=== PATIENT | male | born 1945 | race Caucasian/White ===

== ENCOUNTER 2017-05-11 12:07 | Observation (INO) | payer MEDICARE ==
[2017-05-11 12:31] LABS: BASOPHIL % 0.3 % (0.0-0.4); Eosinophil % 3.9 % (0.00-5.0); Granulocytes % 74.1 % (36.0-66.0); Lymphocytes % 15.2 % (24.0-44.0); Mean Cell Volume 88.9 fl (78-100); Mean Corpuscular Hemoglobin 30.2 pg (26-32); Mean Platelet Volume 10.1 fl (6-9.5); Monocytes % 6.5 % (0.0-12.0); Platelet Count 296 K/mm3 (150-450); Red Blood Count 5.39 M/mm3 (4.1-5.6); Red Cell Distribution Width 13.4 % (11.5-14.0); White Blood Count 15.9 K/mm3 (4.0-10.5)
[2017-05-11 12:47] LABS: ALBUMIN 3.8 g/dL (3.4-5.0); ALKALINE PHOSPHATASE 58 U/L (46-116); ANION GAP 12.9 MEQ/L (5-15); BLOOD UREA NITROGEN 20 mg/dL (9-20); CHLORIDE 102 mEq/L (98-107); Carbon Dioxide 29.2 mEq/L (21-32); Glucose 169 MG/DL (70-110); Potassium 4.4 mEq/L (3.5-5.1); SGOT/AST 20 U/L (15-37); SGPT/ALT 8 U/L (12-78); SODIUM 140 mEq/L (136-145); Total Protein 7.9 gm/dL (6.4-8.2)
[2017-05-11] MEDS ORDERED: TYLENOL 325 MG PO PRN (16:47)
[2017-05-11] MEDS: Sinemet 25/100 MG PO SCH ×2 (17:00→21:57)
[2017-05-11] MEDS ORDERED: Sodium Chloride 0.9% 500 ML 500 ML IV SCH (17:00)
[2017-05-11 17:45] LABS: Lactic Acid 2.1 (0.4-2.0)
[2017-05-11] MEDS ORDERED: Sinemet 25/100 MG ONE (17:54)
--- NOTE | 2017-05-11 18:02 | PCM.HP ---
History of Present Illness - Chief Complaint Chief Complaint: rule out sepsis History of Present Illness: is a 72 year old male pt of Dr. Malone with a hx of CAD including CABG who saw her for the first time today c/o cold sweats and nausea for several days. Hasn't been feeling well in general. Denies fever or cough. Dr. Malone margaret some labs and WBC count was 15,000 so he was admitted to the hospital for rule out sepsis. Lactate is pending. His blood cultures are being drawn, after which zosyn will be started. - Review of Systems Constitutional: Other (cold sweats) Abdominal/Gastrointestinal: Nausea All Other Systems: Reviewed and Negative Medications & Allergies Home Medications: Home Medication List Acetaminophen 500 mg PO DAILY PRN 05/11/17 [History Confirmed 05/11/17] Aspirin [Adult Low Dose Aspirin EC] 81 mg PO DAILY 05/11/17 [History Confirmed 05/11/17] Atorvastatin Calcium [Lipitor 20MG Tablet] 20 mg PO HS 05/11/17 [History Confirmed 05/11/17] Carbidopa/Levodopa 25/100 mg [Sinemet 25/100 MG] 2 tab PO QID 05/11/17 [ History Confirmed 05/11/17] Cholecalciferol (Vitamin D3) [Vitamin D] 2,000 unit PO BID 05/11/17 [ History Confirmed 05/11/17] Clopidogrel Bisulfate 75 mg [PLAVIX 75 MG Tablet] 75 mg PO DAILY 05/11/17 [History Confirmed 05/11/17] Donepezil HCl 10 mg [Aricept 10 MG] 10 mg PO DAILY 05/11/17 [History Confirmed 05/11/17] Famotidine [Pepcid] 20 mg PO BID 05/11/17 [History Confirmed 05/11/17] Lisinopril [Prinivil] 5 mg PO DAILY 05/11/17 [History Confirmed 05/11/17] Meloxicam 7.5 mg [Mobic 7.5 MG] 7.5 mg PO DAILY PRN PRN 05/11/17 [History Confirmed 05/11/17] Metoprolol Succinate 25 mg PO HS 05/11/17 [History Confirmed 05/11/17] Multivitamin [Multivitamins] 1 each PO DAILY 05/11/17 [History Confirmed ] [place]-3S/Dha/Epa/Fish Oil [Fish Oil [place]-3 Softgel] 1 each PO DAILY 05/11/17 [ History Confirmed 05/11/17] Sertraline HCl [Zoloft] 25 mg PO DAILY 05/11/17 [History Confirmed 05/11/17] Tamsulosin HCl 0.4 mg [Flomax 0.4 MG] 0.4 mg PO HS 05/11/17 [History Confirmed 05/11/17] Timolol Maleate 0.5% Eye [Timoptic 0.5% 5 ml Ophthalmic] 5 ml OP HS [History Confirmed 05/11/17] Ubidecarenone [Ultra Coq10] 100 mg PO DAILY 05/11/17 [History Confirmed 05/11/17 ] Allergies/Adverse Reactions: Allergies Allergy/AdvReac Type Severity Reaction Status Date / Time nitroglycerin AdvReac Severe Fainting Verified 05/11/17 17:57 regadenoson AdvReac Fainting Verified 05/11/17 17:58 - Past Medical History Past Medical History: Yes Neurological History: TIA ENT History: Glaucoma Respiratory History: Sleep Apnea Endocrine Medical History: Diabetes Type II Musculoskelatal History: Other GI Medical History: No Pertinent History History: No Pertinent History Pyscho-Social History: No Pertinent History Male Reproductive Disorders: Prostate Problems - Past Surgical History Past Surgical History: Yes Neuro Surgical History: No Pertinent History Cardiac History: CABG, Cardiac Stent Respiratory Surgery: No Pertinent History GI Surgical History: Appendectomy Genitourinary Surgical Hx: No Pertinent History Musculskeletal Surgical Hx: No Pertinent History Male Surgical History: No Pertinent History Other Surgical History: DENTAL INPLANTS - Social History Smoking Status: Former smoker Exposure to second hand smoke: No Alcohol: Rarely Drug Use: none - Physical Exam Vital Signs: Vital Signs - 24 hr Temp Pulse Resp BP Pulse Ox 05/11/17 16:56 98.1 F 68 22 139/65 92 L 05/11/17 16:47 98.1 F 68 22 139/65 92 L General Appearance: no apparent distress Neurologic Exam: alert, oriented x 3, cooperative Eye Exam: eyes nml inspection Neck Exam: normal inspection Respiratory Exam: normal breath sounds, lungs clear, No crackles/rales, No rhonchi, No wheezing Cardiovascular Exam: regular rate/rhythm, normal heart sounds, No murmur Gastrointestinal/Abdomen Exam: soft, tenderness (RUQ), other (hypoactive bowel sounds), No guarding, No rebound Back Exam: normal inspection Extremity Exam: No pedal edema, No swelling Skin Exam: normal color, warm, dry Results - Labs Lab/Micro Results: Lab Results-Last 24 Hours 05/11/17 05/11/17 05/11/17 Range/Units 12:23 12:23 17:31 WBC 15.9 H (4.0-10.5) K/mm3 RBC 5.39 (4.1-5.6) M/mm3 Hgb 16.3 (12.5-18.0) gm/dl Hct 47.9 (42-50) % MCV 88.9 (78-100) fl MCH 30.2 (26-32) pg MCHC 34.0 (32-36) g/dl RDW 13.4 (11.5-14.0) % Plt Count 296 (150-450) K/mm3 MPV 10.1 H (6-9.5) fl Gran % 74.1 H (36.0-66.0) % Lymphocytes % 15.2 L (24.0-44.0) % Monocytes % 6.5 (0.0-12.0) % Eosinophils % 3.9 (0.00-5.0) % Basophils % 0.3 (0.0-0.4) % Basophils # 0.04 (0-0.4) Sodium 140 (136-145) mEq/L Potassium 4.4 (3.5-5.1) mEq/L Chloride 102 (98-107) mEq/L Carbon Dioxide 29.2 (21-32) mEq/L Anion Gap 12.9 (5-15) MEQ/L BUN 20 (9-20) mg/dL Creatinine 1.23 (0.55-1.30) mg/dl Estimated GFR > 60 ML/MIN Glucose 169 H (70-110) MG/DL Lactic Acid 2.1 H (0.4-2.0) Calcium 9.2 (8.5-10.1) mg/dL Total Bilirubin 0.80 (0.2-1.0) mg/dL AST 20 (15-37) U/L ALT 8 L (12-78) U/L Alkaline Phosphatase 58 (46-116) U/L Serum Total Protein 7.9 (6.4-8.2) gm/dL Albumin 3.8 (3.4-5.0) g/dL - Radiology Impressions Radiology Exams & Impressions: Radiology Procedures Category Date Time Status CHEST 2 VIEWS (PA AND LAT) Routine Exams 05/11/17 16:39 Ordered Assessment/Plan (1) Leukocytosis Current Visit: Yes Status: Acute Assessment & Plan: Admitted to r/o sepsis, cultures drawn and pending, urine culture to be taken once urine is produced by the patient. Zosyn IV to be started now. Recheck WBC count in the morning. Code(s): D72.829 - ELEVATED WHITE BLOOD CELL COUNT, UNSPECIFIED (2) Nausea Current Visit: Yes Status: Acute Assessment & Plan: Tender in RUQ on exam - check GB tomorrow via ultrasound. Code(s): R11.0 - NAUSEA
[2017-05-11] MEDS: Zosyn 3.375GM/100 Ml D5W 3.375 GM/100 ML IVPB IV SCH ×2 (18:45→23:26)
[2017-05-11 19:19] LABS: Bilirubin NEGATIVE (NEGATIVE); Blood NEGATIVE Ery/ul (0-5); COMPLETE URINE MICROSCOPIC? NO; Collection Type CLEAN CATCH; Glucose NEGATIVE (NEGATIVE); Leukocyte Esterase NEGATIVE (NEGATIVE)
[2017-05-11] MEDS: Dextrose 5% -0.45 NaCl 1000 ML 1,000 ML IV SCH (20:16)
[2017-05-11] MEDS: Pepcid 20 MG PO SCH (21:57)
[2017-05-11] MEDS: VITAMIN D PO SCH (21:57)
[2017-05-11] MEDS ORDERED: Toprol-Xl 25MG Tablets PO SCH (22:00)
[2017-05-11] MEDS ORDERED: TIMOPTIC 0.5% 5 ML OPHTHALMIC OP SCH (22:00)
[2017-05-11] MEDS ORDERED: Flomax 0.4 MG PO SCH (22:00)
[2017-05-11] MEDS ORDERED: ZOCOR 20MG PO SCH (22:00)
[2017-05-12] MEDS: Zosyn 3.375GM/100 Ml D5W 3.375 GM/100 ML IVPB IV SCH ×3 (05:21→17:33)
[2017-05-12 06:08] LABS: BASOPHIL % 0.2 % (0.0-0.4); Eosinophil % 6.4 % (0.00-5.0); Granulocytes % 58.1 % (36.0-66.0); Lymphocytes % 26.6 % (24.0-44.0); Mean Cell Volume 88.4 fl (78-100); Mean Corpuscular Hemoglobin 30.3 pg (26-32); Mean Platelet Volume 10.4 fl (6-9.5); Monocytes % 8.7 % (0.0-12.0); Platelet Count 279 K/mm3 (150-450); Red Blood Count 4.99 M/mm3 (4.1-5.6); Red Cell Distribution Width 13.4 % (11.5-14.0); White Blood Count 13.7 K/mm3 (4.0-10.5)
[2017-05-12 06:15] LABS: ALBUMIN 3.3 g/dL (3.4-5.0); ALKALINE PHOSPHATASE 42 U/L (46-116); ANION GAP 14.1 MEQ/L (5-15); BLOOD UREA NITROGEN 15 mg/dL (9-20); CHLORIDE 104 mEq/L (98-107); Glucose 168 MG/DL (70-110); Potassium 3.9 mEq/L (3.5-5.1); SGOT/AST 17 U/L (15-37); SGPT/ALT 11 U/L (12-78); SODIUM 140 mEq/L (136-145); Total Protein 6.7 gm/dL (6.4-8.2)
--- NOTE | 2017-05-12 08:08 | XRAY ---
Indication: Cold sweats. Unknown source of infection. Comparison: None PA/lateral chest demonstrates full inflated lungs without focal infiltrate, consolidation, or large effusion. Heart is not enlarged with previous CABG surgery. Vascularity normal. Bony thorax intact with mild osteopenia and degenerative changes. Impression: Nonacute chest with chronic features.
[2017-05-12] MEDS ORDERED: METRONIDAZOLE TP PRN (08:54)
[2017-05-12] MEDS ORDERED: MEDICATION INTERVENTION MC PRN ×2 (09:05→09:07)
[2017-05-12] MEDS ORDERED: DHA PO SCH (10:00)
[2017-05-12] MEDS ORDERED: UBIDECARENONE 100 MG PO SCH (10:00)
[2017-05-12] MEDS ORDERED: OMEGA PO SCH (10:00)
[2017-05-12] MEDS ORDERED: Aricept 10 MG PO SCH (10:00)
[2017-05-12] MEDS ORDERED: Zestril 5 MG PO SCH (10:00)
[2017-05-12] MEDS ORDERED: FISH OIL 1,000 MG CAPSULE PO SCH (10:00)
[2017-05-12] MEDS ORDERED: EPA PO SCH (10:00)
[2017-05-12] MEDS ORDERED: ECOTRIN 81 MG PO SCH (10:00)
[2017-05-12] MEDS ORDERED: PLAVIX 75 MG Tablet PO SCH (10:00)
[2017-05-12] MEDS ORDERED: NON-FORMULARY ITEM (Multivitamin [Multivitamins] 1 EACH) PO SCH (10:00)
[2017-05-12] MEDS ORDERED: THERAGRAN MULTIVITAMIN PO SCH (10:00)
[2017-05-12] MEDS ORDERED: FISH OIL PO SCH (10:00)
[2017-05-12] MEDS: VITAMIN D PO SCH (10:09)
[2017-05-12] MEDS: Sinemet 25/100 MG PO SCH ×3 (10:09→17:33)
[2017-05-12] MEDS: Pepcid 20 MG PO SCH (10:09)
--- NOTE | 2017-05-12 12:08 | PCM.DS ---
Discharge Summary Date of Admission: 05/12/17 05:58 Admitting Physician: MICK HENSLEY Primary Care Provider: MICK HENSLEY Allergies Allergies nitroglycerin Adverse Reaction (Severe, Verified 05/11/17 17:57) Fainting low blood pressure regadenoson Adverse Reaction (Verified 05/11/17 17:58) Fainting Hospital Summary - Hospital Course Hospital Course: Pt saw Dr. Hensley in office, was pale and diaphoretic, labs done revealing WBC 15.9 so he was admitted for further workup and observation. On exam, his RUQ was ttp so U/S RUQ was ordered for today; however, u/s is not in today so will get CT abd/pelvis. He states he's feeling fine, "just like I was when I came in here." His is present today, she thinks he has been feeling poorly chronically for the past several months. He has hx "prediabetes" with some elevated post-op blood sugars. A1c here is 6.7. WBC this morning 13.7. If CT is neg and he is feeling well, will give IV rocephin x 1 and d/c home on po augmentin. Still unsure exactly what we are treating, and WBC is still somewhat elevated but pt states he is feeling good. Troponins negative x 2. Lactate 2.1 on admission and 2.3 last night. Pt is refusing any more needle sticks. - Vitals & Intake/Output Vital Signs: Vital Signs Temperature 98.4 F 05/12/17 07:18 Pulse Rate 63 05/12/17 07:18 Respiratory Rate 18 05/12/17 07:18 Blood Pressure 113/66 05/12/17 07:18 O2 Sat by Pulse Oximetry 93 L 05/12/17 07:18 Intake & Output: Intake & Output 05/10/17 05/11/17 05/12/17 05/13/17 11:59 11:59 11:59 11:59 Intake Total 3511 Output Total 1375 Balance 2136 Weight 87.798 kg - Lab Result Diagrams: 05/12/17 05:58 05/12/17 05:58 Lab Results-Last 24 Hrs: Lab Results-Last 24 Hours 05/11/17 05/11/17 05/11/17 Range/Units 12:23 12:23 17:31 WBC 15.9 H (4.0-10.5) K/mm3 RBC 5.39 (4.1-5.6) M/mm3 Hgb 16.3 (12.5-18.0) gm/dl Hct 47.9 (42-50) % MCV 88.9 (78-100) fl MCH 30.2 (26-32) pg MCHC 34.0 (32-36) g/dl RDW 13.4 (11.5-14.0) % Plt Count 296 (150-450) K/mm3 MPV 10.1 H (6-9.5) fl Gran % 74.1 H (36.0-66.0) % Lymphocytes % 15.2 L (24.0-44.0) % Monocytes % 6.5 (0.0-12.0) % Eosinophils % 3.9 (0.00-5.0) % Basophils % 0.3 (0.0-0.4) % Basophils # 0.04 (0-0.4) Sodium 140 (136-145) mEq/L Potassium 4.4 (3.5-5.1) mEq/L Chloride 102 (98-107) mEq/L Carbon Dioxide 29.2 (21-32) mEq/L Anion Gap 12.9 (5-15) MEQ/L BUN 20 (9-20) mg/dL Creatinine 1.23 (0.55-1.30) mg/dl Estimated GFR > 60 ML/MIN Glucose 169 H (70-110) MG/DL Hemoglobin A1c (4.5-6.2) Lactic Acid 2.1 H (0.4-2.0) Calcium 9.2 (8.5-10.1) mg/dL Total Bilirubin 0.80 (0.2-1.0) mg/dL AST 20 (15-37) U/L ALT 8 L (12-78) U/L Alkaline Phosphatase 58 (46-116) U/L Troponin I (0.000-0.056) ng/ml Serum Total Protein 7.9 (6.4-8.2) gm/dL Albumin 3.8 (3.4-5.0) g/dL Ur Collection Type Urine Color (YELLOW) Urine Appearance (CLEAR) Urine pH (5-6) Ur Specific [place] (1.005-1.025) Urine Protein (Negative) Urine Ketones (NEGATIVE) Urine Blood (0-5) Manas/ul Urine Nitrite (NEGATIVE) Urine Bilirubin (NEGATIVE) Urine Urobilinogen (0-1) mg/dL Ur Leukocyte Esterase (NEGATIVE) Urine Glucose (NEGATIVE) mg/dL Specimen Received 05/11/17 05/11/17 05/11/17 Range/Units 17:35 17:35 18:35 WBC (4.0-10.5) K/mm3 RBC (4.1-5.6) M/mm3 Hgb (12.5-18.0) gm/dl Hct (42-50) % MCV (78-100) fl MCH (26-32) pg MCHC (32-36) g/dl RDW (11.5-14.0) % Plt Count (150-450) K/mm3 MPV (6-9.5) fl Gran % (36.0-66.0) % Lymphocytes % (24.0-44.0) % Monocytes % (0.0-12.0) % Eosinophils % (0.00-5.0) % Basophils % (0.0-0.4) % Basophils # (0-0.4) Sodium (136-145) mEq/L Potassium (3.5-5.1) mEq/L Chloride (98-107) mEq/L Carbon Dioxide (21-32) mEq/L Anion Gap (5-15) MEQ/L BUN (9-20) mg/dL Creatinine (0.55-1.30) mg/dl Estimated GFR ML/MIN Glucose (70-110) MG/DL Hemoglobin A1c 6.7 H (4.5-6.2) Lactic Acid (0.4-2.0) Calcium (8.5-10.1) mg/dL Total Bilirubin (0.2-1.0) mg/dL AST (15-37) U/L ALT (12-78) U/L Alkaline Phosphatase (46-116) U/L Troponin I < 0.017 (0.000-0.056) ng/ml Serum Total Protein (6.4-8.2) gm/dL Albumin (3.4-5.0) g/dL Ur Collection Type CLEAN CATCH Urine Color YELLOW (YELLOW) Urine Appearance CLEAR (CLEAR) Urine pH 7.0 (5-6) Ur Specific [place] 1.010 (1.005-1.025) Urine Protein NEGATIVE (Negative) Urine Ketones NEGATIVE (NEGATIVE) Urine Blood NEGATIVE (0-5) Manas/ul Urine Nitrite NEGATIVE (NEGATIVE) Urine Bilirubin NEGATIVE (NEGATIVE) Urine Urobilinogen NORMAL (0-1) mg/dL Ur Leukocyte Esterase NEGATIVE (NEGATIVE) Urine Glucose NEGATIVE (NEGATIVE) mg/dL Specimen Received 05/11/17 1900 05/11/17 05/11/17 05/12/17 Range/Units 21:13 21:15 05:58 WBC 13.7 H (4.0-10.5) K/mm3 RBC 4.99 (4.1-5.6) M/mm3 Hgb 15.1 (12.5-18.0) gm/dl Hct 44.1 (42-50) % MCV 88.4 (78-100) fl MCH 30.3 (26-32) pg MCHC 34.2 (32-36) g/dl RDW 13.4 (11.5-14.0) % Plt Count 279 (150-450) K/mm3 MPV 10.4 H (6-9.5) fl Gran % 58.1 (36.0-66.0) % Lymphocytes % 26.6 (24.0-44.0) % Monocytes % 8.7 (0.0-12.0) % Eosinophils % 6.4 H (0.00-5.0) % Basophils % 0.2 (0.0-0.4) % Basophils # 0.03 (0-0.4) Sodium (136-145) mEq/L Potassium (3.5-5.1) mEq/L Chloride (98-107) mEq/L Carbon Dioxide (21-32) mEq/L Anion Gap (5-15) MEQ/L BUN (9-20) mg/dL Creatinine (0.55-1.30) mg/dl Estimated GFR ML/MIN Glucose (70-110) MG/DL Hemoglobin A1c (4.5-6.2) Lactic Acid 2.3 H (0.4-2.0) Calcium (8.5-10.1) mg/dL Total Bilirubin (0.2-1.0) mg/dL AST (15-37) U/L ALT (12-78) U/L Alkaline Phosphatase (46-116) U/L Troponin I < 0.017 (0.000-0.056) ng/ml Serum Total Protein (6.4-8.2) gm/dL Albumin (3.4-5.0) g/dL Ur Collection Type Urine Color (YELLOW) Urine Appearance (CLEAR) Urine pH (5-6) Ur Specific [place] (1.005-1.025) Urine Protein (Negative) Urine Ketones (NEGATIVE) Urine Blood (0-5) Manas/ul Urine Nitrite (NEGATIVE) Urine Bilirubin (NEGATIVE) Urine Urobilinogen (0-1) mg/dL Ur Leukocyte Esterase (NEGATIVE) Urine Glucose (NEGATIVE) mg/dL Specimen Received 05/12/17 Range/Units 05:58 WBC (4.0-10.5) K/mm3 RBC (4.1-5.6) M/mm3 Hgb (12.5-18.0) gm/dl Hct (42-50) % MCV (78-100) fl MCH (26-32) pg MCHC (32-36) g/dl RDW (11.5-14.0) % Plt Count (150-450) K/mm3 MPV (6-9.5) fl Gran % (36.0-66.0) % Lymphocytes % (24.0-44.0) % Monocytes % (0.0-12.0) % Eosinophils % (0.00-5.0) % Basophils % (0.0-0.4) % Basophils # (0-0.4) Sodium 140 (136-145) mEq/L Potassium 3.9 (3.5-5.1) mEq/L Chloride 104 (98-107) mEq/L Carbon Dioxide 26.0 (21-32) mEq/L Anion Gap 14.1 (5-15) MEQ/L BUN 15 (9-20) mg/dL Creatinine 1.18 (0.55-1.30) mg/dl Estimated GFR > 60 ML/MIN Glucose 168 H (70-110) MG/DL Hemoglobin A1c (4.5-6.2) Lactic Acid (0.4-2.0) Calcium 8.7 (8.5-10.1) mg/dL Total Bilirubin 0.70 (0.2-1.0) mg/dL AST 17 (15-37) U/L ALT 11 L (12-78) U/L Alkaline Phosphatase 42 L (46-116) U/L Troponin I (0.000-0.056) ng/ml Serum Total Protein 6.7 (6.4-8.2) gm/dL Albumin 3.3 L (3.4-5.0) g/dL Ur Collection Type Urine Color (YELLOW) Urine Appearance (CLEAR) Urine pH (5-6) Ur Specific [place] (1.005-1.025) Urine Protein (Negative) Urine Ketones (NEGATIVE) Urine Blood (0-5) Manas/ul Urine Nitrite (NEGATIVE) Urine Bilirubin (NEGATIVE) Urine Urobilinogen (0-1) mg/dL Ur Leukocyte Esterase (NEGATIVE) Urine Glucose (NEGATIVE) mg/dL Specimen Received Micro Results-Entire Visit: Microbiology 05/11/17 18:35 Urine Culture - Preliminary Clean Catch Midstream NO GROWTH TO DATE - Radiology Exams Ordered Rad Exams-Entire Visit: Radiology Procedures Category Date Time Status ABDOMEN AND PELVIS W CONTRAST [CT] Routine Exams 05/12/17 12:01 Ordered CHEST 2 VIEWS (PA AND LAT) Routine Exams 05/11/17 16:39 Completed GALLBLADDER [US] Routine Exams 05/11/17 18:02 Ordered - Procedures and Test Procedures and Tests throughout Hospitalization: Therapy Orders & Screens 05/11/17 16:39 EKG STAT Comment: Discharge Exam General Appearance: no apparent distress Neurologic Exam: alert, cooperative Skin Exam: normal color, warm, dry Respiratory Exam: normal breath sounds, lungs clear, No crackles/rales, No rhonchi, No wheezing Cardiovascular Exam: regular rate/rhythm, normal heart sounds, No murmur Extremity Exam: No pedal edema, No swelling Final Diagnosis/Problem List - Final Discharge Diagnosis/Problem (1) Leukocytosis Current Visit: Yes Status: Acute Assessment & Plan: On IV zosyn; some decrease in WBC today (from 15.9 to 13.7). Unsure etiology. He is feeling much better. May be able to send him home today on po antibiotics if testing is OK. The elevated lactate is of some concern but clinically he looks good. (2) Nausea Current Visit: Yes Status: Acute Assessment & Plan: resolved. He is eating lunch currently. (3) RUQ pain Current Visit: Yes Status: Acute Assessment & Plan: Since ultrasound is basically unavailable today, will check CT abd/pelvis. - Discharge Disposition: Home, Self-Care Condition: Stable Prescriptions: No Action Lisinopril [Prinivil] 5 mg PO DAILY Clopidogrel Bisulfate 75 mg [PLAVIX 75 MG Tablet] 75 mg PO DAILY Atorvastatin Calcium [Lipitor 20MG Tablet] 20 mg PO HS Donepezil HCl 10 mg [Aricept 10 MG] 10 mg PO DAILY Metoprolol Succinate 25 mg PO HS Timolol Maleate 0.5% Eye [Timoptic 0.5% 5 ml Ophthalmic] 5 ml OP HS Tamsulosin HCl 0.4 mg [Flomax 0.4 MG] 0.4 mg PO HS Carbidopa/Levodopa 25/100 mg [Sinemet 25/100 MG] 2 tab PO QID Meloxicam 7.5 mg [Mobic 7.5 MG] 7.5 mg PO DAILY PRN PRN PRN Reason: Pain Sertraline HCl [Zoloft] 25 mg PO DAILY Multivitamin [Multivitamins] 1 each PO DAILY Ubidecarenone [Ultra Coq10] 100 mg PO DAILY Famotidine [Pepcid] 20 mg PO BID [place]-3S/Dha/Epa/Fish Oil [Fish Oil [place]-3 Softgel] 1 each PO DAILY Aspirin [Adult Low Dose Aspirin EC] 81 mg PO DAILY Acetaminophen 500 mg PO DAILY PRN Cholecalciferol (Vitamin D3) [Vitamin D] 2,000 unit PO BID Metronidazole [Metrogel] 55 gm TP DAILY PRN PRN Reason: skin
[2017-05-12] MEDS: Dextrose 5% -0.45 NaCl 1000 ML 1,000 ML IV SCH (12:16)
[2017-05-12] MEDS ORDERED: ROCEPHIN 1 Gm-D5w 50 ml Bag** 1 G/50 ML IVPB IV ONE (17:45)
[2017-05-12 18:53] VITALS: BP 131/62; PULSE 75; O2SAT 92
--- NOTE | 2017-05-12 21:19 | XRAY ---
Indication: Right abdominal tenderness. Multiple contiguous axial images obtained through the abdomen and pelvis using 80 cc of Isovue-370 contrast only. Comparison: None Lung bases demonstrates bibasilar atelectasis/scarring. Heart is not enlarged. Noncontrasted stomach and bowel loops appear nonobstructed. Previous reported appendectomy. No free fluid/air. Diffuse fatty liver with a large hepatic hemangioma in the peripheral right lobe measuring at least 5.5 cm in greatest axial dimension. Tiny gallstones/gravel. Remaining pancreas, spleen, adrenal glands, kidneys, ureters, and bladder appear unremarkable. Moderate aortoiliac calcifications. No AAA or pathologic retroperitoneal lymphadenopathy. Osseous structures intact with mild degenerative changes throughout the spine including 2-3 mm anterolisthesis of L4 on L5. Small fatty right inguinal hernia. Impression: 1. Fatty liver with large hemangioma. 2. Tiny gallstones/gravel. 3. Small fatty right inguinal hernia. 4. No acute intra-abdominal/pelvic abnormalities. CTDI 23.62
== END 2017-05-12 19:53 | disposition home or self-care (01) ==
LOC: LAB 12:07 → MED SURG 16:21 → OBSVTOIN 05-12 05:58 → INTOOBSV 05-12 05:58
PROVIDERS: ADMIT Internal Medicine; ATTEND Internal Medicine
DX: D72.829 Elevated white blood cell count, unspecified (principal); R10.11 Right upper quadrant pain; I10 Essential (primary) hypertension; G20 Parkinson's disease; I25.810 Atherosclerosis of coronary artery bypass graft(s) without angina pectoris; Z86.73 Personal history of transient ischemic attack (TIA), and cerebral infarction without residual deficits; E11.9 Type 2 diabetes mellitus without complications; G47.30 Sleep apnea, unspecified; Z79.899 Other long term (current) drug therapy
CPT/HCPCS: 36415; 71020; 74177; 80053; 81002; 83036; 83605; 84484; 85025; 87040; 87086; 93005; 93268; G0378; J0696; J2543; A9270-GY

== ENCOUNTER 2018-07-26 06:09 | Emergency (ER) | payer MEDICARE ==
--- NOTE | 2018-07-26 06:34 | ERPHSYRPT ---
- History of Present Illness Time Seen by Provider: 07/26/18 06:28 Source: patient Exam Limitations: no limitations Physician History: This is a 73-year-old white male who had multiple skin tags removed by Dr. Lainez 3 days ago. He states he woke up today noting that he is dressing on his left lateral chest was saturated with blood. He states he's been oozing from the area. He denies any other complaints Past medical history includes TIA, sleep apnea diabetes type 2, prostate problems, atherosclerotic coronary artery disease. Past surgical history includes cardiac stent, CABG, appendectomy, dental implants. Social history former smoker Timing/Duration: day(s) (3 days) Severity: mild Associated Symptoms: denies symptoms Allergies/Adverse Reactions: nitroglycerin Adverse Reaction (Severe, Verified 05/11/17 17:57) Fainting low blood pressure regadenoson Adverse Reaction (Verified 05/11/17 17:58) Fainting Home Medications: Acetaminophen 500 mg PO DAILY PRN 05/11/17 [History] Aspirin [Adult Low Dose Aspirin EC] 81 mg PO DAILY 05/11/17 [History] Atorvastatin Calcium [Lipitor 20MG Tablet] 20 mg PO HS 05/11/17 [History] Carbidopa/Levodopa 25/100 mg [Sinemet 25/100 MG] 2 tab PO QID 05/11/17 [ History] Cholecalciferol (Vitamin D3) [Vitamin D] 2,000 unit PO BID 05/11/17 [ History] Clopidogrel Bisulfate 75 mg [PLAVIX 75 MG Tablet] 75 mg PO DAILY 05/11/17 [History] Donepezil HCl 10 mg [Aricept 10 MG] 10 mg PO DAILY 05/11/17 [History] Famotidine [Pepcid] 20 mg PO BID 05/11/17 [History] Lisinopril [Prinivil] 5 mg PO DAILY 05/11/17 [History] Meloxicam 7.5 mg [Mobic 7.5 MG] 7.5 mg PO DAILY PRN PRN 05/11/17 [History] Metoprolol Succinate 25 mg PO HS 05/11/17 [History] Metronidazole [Metrogel] 55 gm TP DAILY PRN 05/11/17 [History] Multivitamin [Multivitamins] 1 each PO DAILY 05/11/17 [History] [place]-3S/Dha/Epa/Fish Oil [Fish Oil [place]-3 Softgel] 1 each PO DAILY 05/11/17 [ History] Sertraline HCl [Zoloft] 25 mg PO DAILY 05/11/17 [History] Tamsulosin HCl 0.4 mg [Flomax 0.4 MG] 0.4 mg PO HS 05/11/17 [History] Timolol Maleate 0.5% Eye [Timoptic 0.5% 5 ml Ophthalmic] 5 ml OP HS [History] Ubidecarenone [Ultra Coq10] 100 mg PO DAILY 05/11/17 [History] - Review of Systems Constitutional: No Fever, No Chills Eyes: No Symptoms Ears, Nose, & Throat: No Symptoms Respiratory: No Cough, No Dyspnea Cardiac: No Chest Pain, No Edema, No Syncope Abdominal/Gastrointestinal: No Abdominal Pain, No Nausea, No Vomiting, No Diarrhea Genitourinary Symptoms: No Dysuria Musculoskeletal: No Back Pain, No Neck Pain Skin: Other (bleeding from skin tag left anterior lateral chest) Neurological: No Dizziness, No Focal Weakness, No Sensory Changes Psychological: No Symptoms Endocrine: No Symptoms All Other Systems: Reviewed and Negative - Past Medical History Pertinent Past Medical History: Yes Neurological History: TIA ENT History: Glaucoma Respiratory History: Sleep Apnea Endocrine Medical History: Diabetes Type II Musculoskeletal History: Other GI Medical History: No Pertinent History History: No Pertinent History Psycho-Social History: No Pertinent History Male Reproductive Disorders: Prostate Problems - Past Surgical History Past Surgical History: Yes Neuro Surgical History: No Pertinent History Cardiac: CABG, Cardiac Stent Respiratory: No Pertinent History Gastrointestinal: Appendectomy Genitourinary: No Pertinent History Musculoskeletal: No Pertinent History Male Surgical History: No Pertinent History Other Surgical History: DENTAL INPLANTS - Social History Smoking Status: Former smoker Exposure to second hand smoke: No Drug Use: none - Nursing Vital Signs Nursing Vital Signs: Initial Vital Signs Temperature 98.2 F 07/26/18 06:10 Pulse Rate 64 07/26/18 06:10 Respiratory Rate 18 07/26/18 06:10 Blood Pressure 120/72 07/26/18 06:10 O2 Sat by Pulse Oximetry 97 07/26/18 06:10 Pain Scale Pain Intensity 0 - Physical Exam General Appearance: no apparent distress, alert, other (well-developed well- nourished white male, alert, oriented x 3) Eye Exam: PERRL/EOMI, eyes nml inspection Ears, Nose, Throat Exam: normal ENT inspection, TMs normal, pharynx normal, moist mucous membranes Neck Exam: normal inspection, non-tender, supple, full range of motion Respiratory Exam: normal breath sounds, lungs clear, No respiratory distress Cardiovascular Exam: regular rate/rhythm, normal heart sounds, normal peripheral pulses Gastrointestinal/Abdomen Exam: soft, normal bowel sounds, No tenderness, No mass Back Exam: normal inspection, normal range of motion, No CVA tenderness, No vertebral tenderness Extremity Exam: normal inspection, normal range of motion, pelvis stable Neurologic Exam: alert, oriented x 3, cooperative, normal mood/affect, nml cerebellar function, nml station & gait, sensation nml, No motor deficits Skin Exam: other (skin with multiple Band-Aids covering skin tag removal sites. Left anterior lateral c 0.3 cm area which is oozing blood.) SpO2 Interpretation: normal - Course Nursing assessment & vital signs reviewed: Yes Ordered Tests: Active Orders 24 hr Category Date Time Status Wound Care STAT Care 07/26/18 06:26 Active - Progress Progress: improved Progress Note: 07/26/18 06:33 This is a 73-year-old white male status post multiple skin tags 3 days ago he arrives with complaint of one-sided on his upper anterior lateral chest which has been wheezing for several days he states that this morning he awoke and then noted that the dressing was saturated with blood. The nurses remove this and has cleansed the area he appears to be oozing a small amount of blood to the area. Will go ahead and have nurse clean the area and apply Surgicel. - Departure Time of Disposition: 06:36 Departure Disposition: Home Clinical Impression: Bleeding from wound Condition: Fair Critical Care Time: No Referrals: MICK HENSLEY [Primary Care Provider] - Additional Instructions: Return home. Cold packs to the area 24-48 hours. Apply pressure if further bleeding. Follow-up with your surgeon/rn training if further bleeding. Return for acute distress or for severe symptoms.
[2018-07-26 06:37] VITALS: BP 120/72; PULSE 64; O2SAT 97
== END 2018-07-26 06:50 | disposition home or self-care (01) ==
LOC: ED 06:09
DX: L76.21 Postprocedural hemorrhage of skin and subcutaneous tissue following a dermatologic procedure (principal); Z79.01 Long term (current) use of anticoagulants; Z79.899 Other long term (current) drug therapy
CPT/HCPCS: 99283

== ENCOUNTER 2019-07-28 09:18 | Day surgery (SDC) | payer MEDICARE ==
[~2019-07-28 09:18] MED LIST: Lactated Ringers 1,000 ML IV SCH
--- NOTE | 2019-07-28 09:44 | HP ---
DATE OF SURGERY: 07/28/2019 HISTORY OF PRESENT ILLNESS: The patient is a 74 year-old who had some diarrhea but only two or three loose stools a day going on for the past two to three years. No bloody stools. Last colonoscopy ten years ago and had a polyp, negative for colon cancer. He denied any abdominal surgery. He is in need of follow up screening colonoscopy as he has history of polyps and his last colonoscopy greater than ten years ago. PAST MEDICAL HISTORY: Heart disease, diabetes, hypertension, Parkinson's. Heart bypass in 2007. Colonoscopy more than 10 years ago. PAST SURGICAL HISTORY: Cataract surgery. Appendectomy. MEDICATIONS: Atorvastatin, carbidopa/levodopa, clopidogrel, donepezil, Flonase, lisinopril, meloxicam, Metformin, metoprolol, Tamsulosin, Timoptic, Tylenol, vitamin D3. ALLERGIES: NITROGLYCERIN. REGADENSON. FAMILY HISTORY: Heart disease. Lung disease. Stroke. His mother had some cancer. Prostate cancer. Cervical cancer. SOCIAL HISTORY: No smoking. No alcohol abuse. REVIEW OF SYSTEMS: Fourteen systems reviewed per admission assessment. No chest pain or palpitations other systems negative or noncontributory as above and per preadmission questionnaire. PHYSICAL EXAMINATION: GENERAL: No acute distress. HEENT: Sclerae nonicteric. NECK: No JVD. CHEST: Equal excursion, nonlabored breathing. CVS: Regular rate and rhythm. ABDOMEN: Soft. No peritoneal signs. EXTREMITIES: No significant edema. NEURO: Alert, oriented, moving extremities symmetrically. No gross motor deficits noted. IMPRESSION: History of polyps, last colonoscopy more than ten years ago. He is in need of follow up screening colonoscopy. I feel he is a candidate. Risks and benefits explained in detail including but not limited to bleeding or infection, risk of bowel injury or perforation possibly requiring open procedure, risk of missed or nondiagnosis or incomplete exam possibly requiring barium enema, other studies or procedures, general risk of anesthesia or sedation, risk of bowel prep, postoperative risk of nausea, vomiting or cramping but not limited to. He understands and agrees to the planned procedure and will proceed with outpatient screening colonoscopy.
[2019-07-28] MEDS ORDERED: DIPRIVAN 200 MG/20 ML IV ONE ×2 (11:20→11:37)
[2019-07-28 13:22] VITALS: O2SAT 96
[2019-07-28 13:29] VITALS: BP 133/70; PULSE 63
--- NOTE | 2019-07-28 15:29 | OP ---
DATE/TIME OF PROCEDURE: 07/28/2019 1120 PREOPERATIVE DIAGNOSIS: History of some loose stools and diarrhea, history of polyps, need for follow up screening colonoscopy as last colonoscopy was several years ago. POSTOPERATIVE DIAGNOSES: 1) Small raised lesion versus early polyp, descending colon, transverse colon as well as raised lesion rectum. 2) Diverticulosis. 3) Small internal and external hemorrhoids. 4) Fair bowel prep. PROCEDURES: 1) Colonoscopy to terminal ileum. 2) Retrograde ileoscopy. 3) Random cold biopsies of ileum to evaluate for microscopic ileitis. 4) Random cold biopsies colon to evaluate for microscopic colitis. 5) Hot biopsy removal small raised lesion versus early polyp versus hyperplasia transverse colon, descending colon as well as rectum. SURGEON: Dr. Hemal Núñez. ANESTHESIA: MAC. ESTIMATED BLOOD LOSS: Minimal. INDICATIONS: As noted above. Risks and benefits explained in detail but not limited to and consent was obtained. DESCRIPTION OF PROCEDURE AND FINDINGS: The patient is taken to the operating room. MAC anesthesia introduced. After official time out and no disagreement with planned procedure, digital rectal exam did not reveal rectal masses. He did have some internal and external hemorrhoids. Video colonoscope inserted and passed up through the tortuous sigmoid, descending, transverse and ascending colon. The scope was able to be passed around to the cecum up through the terminal ileum. Retrograde ileoscopy was performed which was grossly unremarkable. Given his symptoms of loose stool and his concerns, some random cold biopsies were taken to evaluate for microscopic ileitis. Good hemostasis noted. Scope pulled back into the colon. Overall prep was fair. There was some liquidy stool scattered throughout the colon this limited the exam for slightly for some very tiny lesions. Otherwise there were no signs of any large polyps, masses or obstructing lesions. Given his symptom complaints of loose stools, some random cold biopsies were taken to evaluate for microscopic colitis. Good hemostasis noted. There are no signs of any obvious macroscopic colitis. There are no signs of any large polyps, masses or obstructing lesions but he did have some diverticulosis. He did have small raised lesion versus early polyp or hyperplastic lesion in the transverse colon, descending colon and rectum that were removed with hot biopsy forceps with brief bursts of cautery. Random cold biopsies had been taken of the colon. He had some small internal and external hemorrhoids. There were no signs of any large polyps, masses or obstructing lesions. The scope is withdrawn. Findings discussed with the family out in the waiting area.
== END 2019-07-28 13:15 | disposition home or self-care (01) ==
LOC: SDC 09:18
PROVIDERS: ATTEND Surgery
DX: Z12.11 Encounter for screening for malignant neoplasm of colon (principal); K57.90 Diverticulosis of intestine, part unspecified, without perforation or abscess without bleeding; K64.4 Residual hemorrhoidal skin tags; D12.3 Benign neoplasm of transverse colon; K64.8 Other hemorrhoids; D12.8 Benign neoplasm of rectum; K63.5 Polyp of colon; Z86.010 Personal history of colon polyps; E11.9 Type 2 diabetes mellitus without complications; I10 Essential (primary) hypertension; G20 Parkinson's disease; Z79.899 Other long term (current) drug therapy
CPT/HCPCS: 82962; 88305; 99100; J2704